=== PATIENT | male | born 1940 | race Asian ===

== ENCOUNTER 2017-04-02 09:54 | Day surgery (SDC) | payer MEDICARE ==
--- NOTE | ~2017-04-02 | PREOPHP ---
PreOp History and Physical [address] [place]. [address] NAME: BRIE CARRERO : 42 STATUS : [facility]#: [id number] AGE: 77 ADM/REG DATE : 04/02/17 MR#: [id number] REPORT SERV DATE: 04/03/17 DICTATED BY: CUBA GARLAND III DATE: 04/01/17 REPORT STATUS : Draft TRANSCRIBED BY: MODL DATE: 04/01/17 HISTORY OF PRESENT ILLNESS: This 77-year-old male comes to the operating room for replacement of a Port-A-Cath which is not functioning. The patient has a history of recurrent gastric cancer. We have been asked by his medical oncologist to replace his Port-A-Cath which is not functioning adequately. Our contrast studies show a fibrin sheath around the catheter. The patient comes now for removal of his subclavian vein Port-A-Cath placement and placement of a new Port-A-Cath. PAST MEDICAL HISTORY: 1. History of recurrent gastric cancer. The patient is status post a previous near total gastrectomy. 2. Hypothyroidism. 3. Hyperlipidemia. The patient has history of chronic kidney disease, hypertension, hyperlipidemia, and hypothyroidism. MEDICATIONS: 1. Levothyroxine. 2. Pravastatin. SOCIAL HISTORY: The patient is . He is retired. He lives locally. FAMILY HISTORY: Unremarkable. REVIEW OF SYSTEMS: Essentially unremarkable otherwise. PHYSICAL EXAMINATION: OBJECTIVE: GENERAL: This is a male, in no acute distress. He is alert and oriented x3 HEENT: Unremarkable. NEUROLOGIC: Cranial nerves 2 through 12 are normal. LUNGS: Clear. CARDIAC: Normal. ABDOMEN: Soft and nontender. ASSESSMENT: 1. A 77-year-old male with recurrent gastric cancer, with need for Port-A-Cath replacement. 2. Hypertension. 3. Chronic kidney disease. 4. Hypothyroidism. 5. Hyperlipidemia. PLAN: The patient comes to the operating room now for removal of his Port-A-Cath and placement of a new Port-A-Cath. This procedure, the risks, benefits, and alternatives, PreOp History and Physical [address] [address] NAME: BRIE CARRERO : 42 STATUS : [facility]#: [id number] AGE: 77 ADM/REG DATE : 04/02/17 MR#: [id number] REPORT SERV DATE: 04/03/17 DICTATED BY: CUBA GARLAND III DATE: 04/01/17 REPORT STATUS : Draft TRANSCRIBED BY: SAIDA DATE: 04/01/17 including not limited to the risk for bleeding, infection, pneumothorax, air embolus, pericardial tamponade, failure of the port to function, infection of the port or subclavian vein thrombosis requiring removal, dislodgement of the Port-A-Cath tubing requiring extraction, pericardial tamponade, and unforeseen complications including deep venous thrombosis, pulmonary embolus, myocardial infarction, stroke, pneumonia, and , have been explained to the patient prior to surgery. All his questions have been answered. He understands the risks and agrees to the surgery as planned. WYATT/SAIDA Cuba Garland III, M.D. / [id number]
--- NOTE | ~2017-04-02 | OP ---
Record Of Operation [facility] [address] [place]. [address] NAME: BRIE CARRERO : 42 STATUS : [facility]#: [id number] AGE: 77 ADM/REG DATE : 04/02/17 MR#: [id number] REPORT SERV DATE: 04/03/17 DICTATED BY: CUBA GEE III DATE: 04/02/17 REPORT STATUS : Draft TRANSCRIBED BY: SAIDA DATE: 04/02/17 DATE OF PROCEDURE: 04/02/2017 PREOPERATIVE DIAGNOSIS: Recurrent gastric cancer with need for Port-A-Cath placement and removal of nonfunctioning Port-A-Cath. POSTOPERATIVE DIAGNOSIS: Recurrent gastric cancer with need for Port-A-Cath placement and removal of nonfunctioning Port-A-Cath. PROCEDURE: Right subclavian vein Port-A-Cath placement with fluoroscopy, removal of nonfunctioning left subclavian Port-A-Cath. SURGEON: Cuba Gee M.D. ANESTHESIA: General with intubation. COMPLICATIONS: None. ESTIMATED BLOOD LOSS: Less than 5 mL. SPECIMENS: Port-A-Cath for identification. DRAINS: None. LAP AND SPONGE COUNT: Correct x3. BRIEF HISTORY: This 77-year-old male was recently diagnosed with recurrent gastric cancer. We have been asked by his medical oncologist to replace his Port-A-Cath which is no longer functioning. He had a left subclavian vein Port-A-Cath which had a fibrin sheath and was not functioning and could not be salvaged noninvasively. It was felt that removal of this Port-A-Cath with placement of a new Port-A-Cath was indicated. This procedure, the risks, benefits, and alternatives, including not limited to the risk for bleeding, infection, pneumothorax, air embolus, pericardial tamponade, failure of the new port to function, infection of the port or subclavian vein thrombosis requiring removal of the port, dislodgement of the Port-A-Cath tubing requiring extraction, and unforeseen complications including deep venous thrombosis, pulmonary embolus, myocardial infarction, stroke, pneumonia, and , were explained to the patient prior to surgery. His questions were answered. He understood the risks and agreed to surgery as planned. DESCRIPTION OF PROCEDURE: After being properly identified and after discussing risks of surgery with him again in the preoperative area, the patient was taken to the operating room and placed in the supine position on the operating room table. General anesthesia was administered and he was intubated without difficulty. The upper chest and neck areas were prepped and draped sterilely in the usual fashion. After an appropriate "time-out" per [employer] standards, an 18-gauge needle was used to identify the right subclavian vein. The vein was identified on the first pass of the needle. A guidewire was passed through the Record Of [address] [address] NAME: BRIE CARRERO : 42 STATUS : [facility] PAT#: [id number] AGE: 77 ADM/REG DATE : 04/02/17 MR#: [id number] REPORT SERV DATE: 04/03/17 DICTATED BY: CUBA GEE III DATE: 04/02/17 REPORT STATUS : Draft TRANSCRIBED BY: SAIDA DATE: 04/02/17 needle and the needle was removed. Fluoroscopy was performed, confirming the tip of the guidewire to be in the correct position in the superior vena cava. A small transverse incision was then made at the exit site of the guidewire from the skin. A subcutaneous infraclavicular pocket was made of the appropriate size for the Port-A-Cath housing. The Port-A-Cath housing and tubing were assembled, flushed with a heparin solution and the tubing cut to the appropriate length. The introducer was then placed over the guidewire. The guidewire and inner dilator were removed. The Port-A-Cath tubing was then placed through the sheath as the sheath was peeled away. This went very smoothly. The Port-A-Cath housing was positioned in the infraclavicular pocket. Repeat fluoroscopy was performed, confirming the tubing to be in the correct position in the superior vena cava. Hemostasis was assured. The port was flushed with a heparin solution. It was noted to flush easily and noted to aspirate easily as well. The port was secured to the chest wall with several 2-0 silk sutures. Hemostasis was assured. The subcutaneous tissue was closed with running 3-0 chromic suture. The skin was closed with running subcuticular 4-0 Monocryl stitch. The incision was injected with 0.5% Marcaine. The port was accessed with the appropriate Daniel needle. We turned our attention to the left infraclavicular Port-A-Cath. A small incision was made directly over the Port-A-Cath over the previous incision. The incision was continued through the subcutaneous tissue. Hemostasis was controlled with electrocautery. The capsule around the Port-A-Cath housing was divided. The sutures holding the Port-A-Cath housing in place were divided. The Port-A-Cath housing and tubing were removed. The entire tubing was removed. Pressure was held at the exit site of the tubing to prevent air embolus. This exit site was closed with a 3-0 Vicryl suture. Hemostasis was assured. The subcutaneous tissue was closed with running 3-0 chromic suture. The skin was closed with running subcuticular 4-0 Monocryl stitch. The incision was injected with 0.5% Marcaine. Dressings were applied. Anesthesia was reversed, and the patient was taken to the recovery room in stable condition. He tolerated the procedure well. His family was informed results of surgery. The patient will be discharged when stable and comfortable and after his chest x-ray has been cleared by Radiology. His family was advised to keep his wounds clean and dry for 48 hours, that he should not drive for two to three days after surgery or while using narcotics. He was asked to return in two weeks for followup or sooner if any fever, chills, wound drainage, or other problems prior to that time. He was advised to resume his usual medications. He was given prescription for Percocet 7.5 one t.i.d., #12, as needed for pain, which he was advised not to use while driving. WYATT/SAIDA Cuba Gee III, M.D. / [id number] Record Of [facility] [address] [place]. [address] NAME: BRIE CARRERO : 42 STATUS : [facility]#: [id number] AGE: 77 ADM/REG DATE : 04/02/17 MR#: [id number] REPORT SERV DATE: 04/03/17 DICTATED BY: CUBA GEE III DATE: 04/02/17 REPORT STATUS : Draft TRANSCRIBED BY: SAIDA DATE: 04/02/17 CC: Jabier Spencer III, D.O.
[~2017-04-02 09:54] MED LIST: ASAB PO; FLONASE NAS; GOUT MEDICATION; IBU-200200 MG PO; LEVAQUIN750 MG PO; MULTIVITAMI1 PO; NORCO1 TA1 PO; PERCOCET1 TA2 PO; PRAVACHOL40 MG PO; PRAVACHOL80 MG PO; PRILO PO; SYN075 PO; SYN1 PO; TARKA PO; ULORIC40 MG PO; VITAMIN D31000 UNIT PO; VITS/HERBS; Z100 PO; ZOCOR10 PO
== END 2017-04-02 15:11 | disposition home or self-care (01) ==
LOC: SDC 09:54
PROVIDERS: Surgery
PROC: 05PY33Z Removal of Infusion Device from Upper Vein, Percutaneous Approach (ICD-10-PCS; 2017-04-02)
PROC: 05H533Z Insertion of Infusion Device into Right Subclavian Vein, Percutaneous Approach (ICD-10-PCS; 2017-04-02)
PROC: B516YZA Fluoroscopy of Right Subclavian Vein using Other Contrast, Guidance (ICD-10-PCS; 2017-04-02)
PROC: 0JPT0XZ Removal of Tunneled Vascular Access Device from Trunk Subcutaneous Tissue and Fascia, Open Approach (ICD-10-PCS; principal; 2017-04-02 11:15)
PROC: 0JH60XZ Insertion of Tunneled Vascular Access Device into Chest Subcutaneous Tissue and Fascia, Open Approach (ICD-10-PCS; 2017-04-02 11:15)
DX: T82.594A Other mechanical complication of infusion catheter, initial encounter (principal); C16.9 Malignant neoplasm of stomach, unspecified; E03.9 Hypothyroidism, unspecified; E78.5 Hyperlipidemia, unspecified; I12.9 Hypertensive chronic kidney disease with stage 1 through stage 4 chronic kidney disease, or unspecified chronic kidney disease; N18.9 Chronic kidney disease, unspecified; Z79.899 Other long term (current) drug therapy; Z98.41 Cataract extraction status, right eye; Z90.49 Acquired absence of other specified parts of digestive tract; Z98.42 Cataract extraction status, left eye; Z98.890 Other specified postprocedural states; Z85.46 Personal history of malignant neoplasm of prostate
CPT/HCPCS: 71010; 77001; 88300; 93005; C1751; J0690; J1885; J2405; J3010